=== PATIENT | female | born 1970 | race Caucasian/White ===

== ENCOUNTER 2016-12-28 17:56 | Emergency (ER) | payer BC ==
[2016-12-28] MEDS ORDERED: Ibuprofen 800 MG Tab PO ONE (18:19)
--- NOTE | 2016-12-28 18:24 | EDM.PDOC ---
ED HPI HEAD INJURY - General Source of Information: Reports: Patient History Limitations: Reports: No limitations - History of Present Illness Symptom Onset Date: 12/28/16 Location: Reports: frontal Quality: Reports: ache Severity: moderate Place of Occurrence: home Improves with: none Worsens with: none <Na Bynum - Last Filed: 12/28/16 19:05> <JoshShravan - Last Filed: 12/28/16 19:44> - General Chief Complaint: Head Injury Stated Complaint: HEAD INJURY Time Seen by Provider: 12/28/16 18:19 - History of Present Illness INITIAL COMMENTS - FREE TEXT/NARRATIVE: Pt states that she hit her head on a closet. denies LOC however c/o headache. hematoma noted to forehead. (Na Bynum) - Related Data Allergies/ADRs: Allergies Allergy/AdvReac Type Severity Reaction Status Date / Time metronidazole Allergy Abdominal Verified 12/28/16 18:04 Pain Home Meds: Home Meds Amitriptyline [Elavil] 50 mg PO BEDTIME 12/09/15 [History] Citalopram Hydrobromide [Celexa] 40 mg PO DAILY 12/09/15 [History] Ibuprofen [Advil] 400 mg PO ASDIRECTED 12/09/15 [History] Multivitamin [Multivitamins] 1 each PO DAILY 12/09/15 [History] Omeprazole [Prilosec] 20 mg PO DAILY 12/09/15 [History] Past Medical History HEENT History: Reports: None Cardiovascular History: Reports: None Respiratory History: Reports: None Gastrointestinal History: Reports: None Genitourinary History: Reports: UTI, recurrent 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 Neurological History: Reports: None Psychiatric History: Reports: Depression Endocrine/Metabolic History: Reports: None Hematologic History: Reports: None Immunologic History: Reports: None Oncologic (Cancer) History: Reports: None Dermatologic History: Reports: None - Past Surgical History GI Surgical History: Reports: Hernia repair/other Female Surgical History: Reports: None Musculoskeletal Surgical History: Reports: Arthroscopic knee, Shoulder surgery Other Musculoskeletal Surgeries/Procedures:: right upper arm surgery <Na Bynum - Last Filed: 12/28/16 19:05> Social & Family History - Tobacco Use Smoking Status *Q: Unknown Ever Smoked Second Hand Smoke Exposure: No - Caffeine Use Caffeine Use: Reports: Soda - Recreational Drug Use Recreational Drug Use: No <FletcherNa Yaakovtammiegregor - Last Filed: 12/28/16 19:05> ED ROS GENERAL - Review of Systems Review Of Systems: See Below Neurological: Reports: Headache <FletcherColadilene Yaakovtammiegregor - Last Filed: 12/28/16 19:05> ED EXAM, HEAD INJURY - Physical Exam Exam: See Below Exam Limited By: No limitations General Appearance: alert, WD/WN, no apparent distress Head: normocephalic, scalp hematoma Eyes: bilateral eye: EOMI, normal inspection, PERRL Neck: full range of motion, normal alignment, normal inspection, tender midline Respiratory: no respiratory distress, lungs clear, normal breath sounds, no accessory muscle use, chest non-tender 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, no motor/sensory deficits, alert, normal mood/affect, oriented x 3 <Na Bynum - Last Filed: 12/28/16 19:05> Course <Na Bynum - Last Filed: 12/28/16 19:05> <Shravan Moreno - Last Filed: 12/28/16 19:44> - Vital Signs Last Recorded V/S: Last Vital Signs Temp 36.6 C 12/28/16 18:07 Pulse 81 12/28/16 18:07 Resp 20 12/28/16 18:07 BP 157/93 H 12/28/16 18:07 Pulse Ox 97 12/28/16 18:07 (Na Bynum) (Shravan Moreno) - Orders/Labs/Meds Orders: Active Orders 24 hr Category Date Time Status Cervical Spine wo Cont [CT] Urgent Exams 12/28/16 18:18 Taken Head wo Cont [CT] Urgent Exams 12/28/16 18:18 Taken (Na Bynum) (Shravan Moreno) Meds: Medications Discontinued Medications Generic Name Dose Route Start Last Admin Trade Name Freq PRN Reason Stop Dose Admin Ibuprofen 800 mg 12/28/16 18:19 12/28/16 18:35 Motrin PO 12/28/16 18:20 800 mg ONETIME ONE Administration (Shravan Moreno) - Re-Assessments/Exams Free Text/Narrative Re-Assessment/Exam: 12/28/16 19:40 results discussed with Pt & family. (Shravan Moreno) Departure <Na Bynum - Last Filed: 12/28/16 19:05> - Departure Time of Disposition: 19:42 Condition: good <Shravan Moreno - Last Filed: 12/28/16 19:44> - Departure Disposition: Home, Self-Care 01 Clinical Impression: Concussion with less than 1 hour loss of consciousness, Strain of neck muscle Instructions: Concussion, Adult, [id number] Forms: ED Department Discharge Additional Instructions: 1) rest as much as possible next 48 hours 2) must recheck if develop signs of head injury 3) try heat to sore areas 4) follow up at clinic or recheck if there is any change or concerns
[2016-12-28] MEDS ORDERED: LORazepam 0.5 MG Tab PO ONE (19:40)
[2016-12-28] MEDS ORDERED: Ketorolac 30 MG/ML SDV IM ONE (19:40)
[2016-12-28 20:13] VITALS: BP 151/102
== END 2016-12-28 20:01 | disposition home or self-care (01) ==
LOC: DL.ED 17:56
DX: S06.0X9A Concussion with loss of consciousness of unspecified duration, initial encounter (principal); S16.1XXA Strain of muscle, fascia and tendon at neck level, initial encounter; F32.9 Major depressive disorder, single episode, unspecified; Z87.440 Personal history of urinary (tract) infections; Z79.899 Other long term (current) drug therapy; Z88.8 Allergy status to other drugs, medicaments and biological substances; W22.8XXA Striking against or struck by other objects, initial encounter; Y92.009 Unspecified place in unspecified non-institutional (private) residence as the place of occurrence of the external cause
CPT/HCPCS: 70450; 72125; 96372; 99283; A9270; J1885

== ENCOUNTER 2018-03-25 20:02 | Emergency (ER) | payer BC ==
--- NOTE | 2018-03-25 20:29 | EDM.PDOC ---
ED HPI GENERAL MEDICAL PROBLEM - General Chief Complaint: Headache Stated Complaint: [id number] HEADACHE Time Seen by Provider: 03/25/18 20:26 Source of Information: Reports: Patient History Limitations: Reports: No Limitations - History of Present Illness INITIAL COMMENTS - FREE TEXT/NARRATIVE: gives h/o migraines, onset yesterday been vomiting tried doxy with '0' Frontal Head Pain Score (Numeric/FACES): 10 - Related Data Allergies Allergy/AdvReac Type Severity Reaction Status Date / Time metronidazole Allergy Abdominal Verified 12/28/16 18:04 Pain Home Meds: Home Meds Amitriptyline [Elavil] 50 mg PO BEDTIME 12/09/15 [History] Citalopram Hydrobromide [Celexa] 40 mg PO DAILY 12/09/15 [History] Omeprazole [Prilosec] 20 mg PO DAILY 12/09/15 [History] Past Medical History HEENT History: Reports: None Cardiovascular History: Reports: None Respiratory History: Reports: None Gastrointestinal History: Reports: None Genitourinary History: Reports: UTI, Recurrent 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 - Physical Exam Exam: See Below Exam Limited By: No Limitations General Appearance: Alert, WD/WN, Mild Distress, Other (vomiting crying) Eye Exam: Bilateral Eye: PERRL (pupils ER @ 4mm) Ears: Hearing Grossly Normal Throat/Mouth: Normal Voice, No Airway Compromise Head Exam: Atraumatic Neck: Supple, Non-Tender Respiratory/Chest: No Respiratory Distress Cardiovascular: Regular Rate, Rhythm GI/Abdominal: Soft, Non-Tender Neuro Exam (Abbreviated): Alert, Oriented, Normal Cognition, Normal Gait, No Motor/Sensory Deficits Psychiatric: Tearful Skin Exam: Warm, Dry, Normal Color Course - Vital Signs Last Recorded V/S: Last Vital Signs Temp 37.1 C 03/25/18 20:17 Pulse 69 03/25/18 20:17 Resp 22 H 03/25/18 20:17 BP 183/94 H 03/25/18 20:17 Pulse Ox 96 03/25/18 20:17 - Orders/Labs/Meds Meds: Medications Discontinued Medications Generic Name Dose Route Start Last Admin Trade Name Sincere PRN Reason Stop Dose Admin Ketorolac Tromethamine 15 mg 03/25/18 20:26 03/25/18 20:33 Toradol IVPUSH 03/25/18 20:27 15 mg ONETIME ONE Administration Morphine Sulfate 2 mg 03/25/18 21:02 03/25/18 21:07 Morphine IVPUSH 03/25/18 21:03 2 mg ONETIME ONE Administration Ondansetron HCl 4 mg 03/25/18 20:26 03/25/18 20:32 Zofran IV 03/25/18 20:27 4 mg ONETIME ONE Administration - Re-Assessments/Exams Free Text/Narrative Re-Assessment/Exam: 03/25/18 21:23 re-exam; s/p morph = much better Departure - Departure Time of Disposition: 21:24 Disposition: Home, Self-Care 01 Condition: Good Clinical Impression: Migraine - Discharge Information Instructions: Migraine Headache, [id number] Referrals: Sheron Morrissey [Primary Care Provider] - Forms: ED Department Discharge Additional Instructions: 1) rest 2) recheck as needed
[2018-03-25 20:30] VITALS: BP 183/94
[2018-03-25] MEDS: Ondansetron 4 MG/2 ML SDV IV ONE (20:32)
[2018-03-25] MEDS: Ketorolac 30 MG/ML SDV IVPUSH ONE (20:33)
[2018-03-25] MEDS: Morphine 2 MG/ML Syringe IVPUSH ONE (21:07)
== END 2018-03-25 21:32 | disposition home or self-care (01) ==
LOC: DL.ED 20:02
DX: G43.909 Migraine, unspecified, not intractable, without status migrainosus (principal); Z79.899 Other long term (current) drug therapy; Z88.8 Allergy status to other drugs, medicaments and biological substances
CPT/HCPCS: 96374; 96375; 99283; J1885; J2270; J2405

== ENCOUNTER 2018-03-26 03:13 | Emergency (ER) | payer BC ==
[2018-03-26] MEDS ORDERED: Butorphanol 2 MG/ML SDV IVPUSH ONE (03:24)
[2018-03-26] MEDS ORDERED: Ondansetron 4 MG/2 ML SDV IV ONE (03:24)
[2018-03-26] MEDS ORDERED: Metoclopramide 10 MG/2 ML SDV IVPUSH ONE (03:29)
[2018-03-26 03:30] VITALS: BP 136/94
[2018-03-26] MEDS ORDERED: Sodium Chloride 0.9% 1,000 ML IV ONE (03:30)
--- NOTE | 2018-03-26 03:31 | EDM.PDOC ---
ED HPI GENERAL MEDICAL PROBLEM - General Chief Complaint: Headache Stated Complaint: HEADACHE [id number] Time Seen by Provider: 03/26/18 03:26 Source of Information: Reports: Patient History Limitations: Reports: No Limitations - History of Present Illness INITIAL COMMENTS - FREE TEXT/NARRATIVE: was here earlier for same, states CRANE never fully gone but gradually it worsened with nausea & retching. 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 Neurological History: Reports: None Psychiatric History: Reports: Depression Endocrine/Metabolic History: Reports: None Hematologic History: Reports: None Immunologic History: Reports: None Oncologic (Cancer) History: Reports: None Dermatologic History: Reports: None - Past Surgical History GI Surgical History: Reports: Hernia Repair/Other Musculoskeletal Surgical History: Reports: Arthroscopic Knee, Shoulder Surgery Social & Family History - Family History Family Medical History: Noncontributory - Caffeine Use Caffeine Use: Reports: Soda ED ROS GENERAL - Review of Systems Review Of Systems: ROS reveals no pertinent complaints other than HPI. - Physical Exam Exam: See Below Exam Limited By: No Limitations General Appearance: Alert, WD/WN, Mild Distress, Other (crying retching) Eye Exam: Bilateral Eye: PERRL (pupils ER @ 4mm) Ears: Hearing Grossly Normal Throat/Mouth: Normal Voice, No Airway Compromise Head Exam: Atraumatic Neck: Non-Tender, Full Range of Motion Respiratory/Chest: No Respiratory Distress Cardiovascular: Regular Rate, Rhythm GI/Abdominal: Soft, Non-Tender Neuro Exam (Abbreviated): Alert, Oriented, Normal Cognition, Normal Gait, No Motor/Sensory Deficits Psychiatric: Tearful Skin Exam: Warm, Dry, Normal Color Course - Vital Signs Last Recorded V/S: Last Vital Signs Temp 36.6 C 03/26/18 03:22 Pulse 79 03/26/18 03:22 Resp 22 H 03/26/18 03:22 BP 136/94 H 03/26/18 03:22 Pulse Ox 95 03/26/18 03:22 - Orders/Labs/Meds Orders: Active Orders 24 hr Category Date Time Status Head wo Cont [CT] Urgent Exams 03/26/18 03:31 Taken Labs: Laboratory Tests 03/26/18 03/26/18 Range/Units 03:41 03:41 WBC 9.4 (5.0-10.0) 10^3/uL RBC 4.47 (4.2-5.4) 10^6/uL Hgb 12.6 (12.0-16.0) g/dL Hct 37.6 (37.0-47.0) % MCV 84.1 (80-100) fL MCH 28.2 (27.0-34.0) pg MCHC 33.5 (33.0-35.0) g/dL Plt Count 262 (150-450) 10^3/uL Neut % (Auto) 69.0 (42.2-75.2) % Lymph % (Auto) 22.6 (20.5-50.1) % [place] % (Auto) 6.8 (2-8) % Eos % (Auto) 1.2 (1.0-3.0) % Baso % (Auto) 0.4 (0.0-1.0) % Sodium 138 (135-145) mmol/L Potassium 4.2 (3.6-5.0) mmol/L Chloride 103 (101-111) mmol/L Carbon Dioxide 24.0 (21.0-31.0) mmol/L Anion Gap 15.2 BUN 20 H (7-18) mg/dL Creatinine 1.0 (0.6-1.3) mg/dL Est Cr Clr Drug Dosing 59.41 mL/min Estimated GFR (MDRD) 59 BUN/Creatinine Ratio 20.00 Glucose 121 H (74-105) mg/dL Calcium 9.6 (8.4-10.2) mg/dl Total Bilirubin 0.7 (0.2-1.0) mg/dL AST 28 (10-42) IU/L ALT 35 (10-60) IU/L Alkaline Phosphatase 91 (42-121) IU/L Total Protein 8.4 H (6.7-8.2) g/dl Albumin 4.7 (3.2-5.5) g/dl Globulin 3.7 Albumin/Globulin Ratio 1.27 Meds: Medications Discontinued Medications Generic Name Dose Route Start Last Admin Trade Name Sincere PRN Reason Stop Dose Admin Butorphanol Tartrate 2 mg 03/26/18 03:24 03/26/18 03:38 Stadol IVPUSH 03/26/18 03:25 2 mg ONETIME ONE Administration Sodium Chloride 1,000 mls @ 999 mls/hr 03/26/18 03:30 03/26/18 03:30 Normal Saline IV 03/26/18 04:30 999 mls/hr .BOLUS ONE Administration Metoclopramide HCl 10 mg 03/26/18 03:29 03/26/18 03:36 Reglan IVPUSH 03/26/18 03:30 10 mg ONETIME ONE Administration Ondansetron HCl 4 mg 03/26/18 03:24 03/26/18 04:29 Zofran IV 03/26/18 03:25 Not Given ONETIME ONE - Re-Assessments/Exams Free Text/Narrative Re-Assessment/Exam: 03/26/18 04:59 results discussed with pt who is feeling better presently. Departure - Departure Time of Disposition: 05:00 Disposition: Home, Self-Care 01 Condition: Good Clinical Impression: Migraine Qualifiers: Migraine type: without aura Status migrainosus presence: with status migrainosus Intractability: intractable Qualified Code(s): G43.011 - Migraine without aura, intractable, with status migrainosus - Discharge Information Instructions: Recurrent Migraine Headache, [id number] Forms: ED Department Discharge Additional Instructions: 1) follow up with clinic - My Orders Last 24 Hours: My Active Orders 03/26/18 03:31 Head wo Cont [CT] Urgent - Assessment/Plan Last 24 Hours: My Active Orders 03/26/18 03:31 Head wo Cont [CT] Urgent
== END 2018-03-26 05:10 | disposition home or self-care (01) ==
LOC: DL.ED 03:13
DX: G43.011 Migraine without aura, intractable, with status migrainosus (principal); F32.9 Major depressive disorder, single episode, unspecified; Z88.8 Allergy status to other drugs, medicaments and biological substances; Z79.899 Other long term (current) drug therapy; Z87.440 Personal history of urinary (tract) infections
CPT/HCPCS: 36415; 70450; 80053; 85025; 96365; 96375; 99284; J0595; J2765; J7030

== ENCOUNTER 2018-03-26 10:49 | Emergency (ER) | payer BC ==
[2018-03-26] MEDS ORDERED: Sodium Chloride 0.9% 10 ML Syringe FLUSH PRN (11:19)
[2018-03-26] MEDS ORDERED: Butorphanol 2 MG/ML SDV IVPUSH ONE (11:20)
[2018-03-26] MEDS ORDERED: LORazepam 2 MG/ML Syringe IVPUSH ONE (11:21)
[2018-03-26] MEDS ORDERED: Metoclopramide 10 MG/2 ML SDV IVPUSH ONE (11:21)
--- NOTE | 2018-03-26 11:35 | EDM.PDOC ---
ED HPI GENERAL MEDICAL PROBLEM - General Chief Complaint: Neurological Problem Stated Complaint: FROM [facility] Time Seen by Provider: 03/26/18 11:20 Source of Information: Reports: Patient, Family, RN, RN Notes Reviewed History Limitations: Reports: No Limitations - History of Present Illness INITIAL COMMENTS - FREE TEXT/NARRATIVE: Pt to ER with c/o severe headache and back pain since Thursday. Patient was seen in the ER last night and had some temporary relief from pain meds. Patient was then seen in the clinic today by Dr. Muñoz. Dr. Muñoz contacted the ER and states the patient presented with the severe headache, back pain, and hyper reflexia. Patient has a history of gastric bypass approximately 3 weeks ago. Patient admits to N/V, denies diarrhea, fever, chills. Patient admits to left ear pain and sore throat. Onset: Gradual Onset Date: 03/24/18 Duration: Constant Location: Reports: Head, Back Quality: Reports: Ache, Throbbing Severity: Severe Improves with: Reports: None Worsens with: Reports: None Associated Symptoms: Reports: Headaches, Nausea/Vomiting Head Pain Score (Numeric/FACES): 10 - Related Data Allergies Allergy/AdvReac Type Severity Reaction Status Date / Time metronidazole Allergy Abdominal Verified 03/26/18 11:22 Pain Home Meds: Home Meds Amitriptyline [Elavil] 50 mg PO BEDTIME 12/09/15 [History] Citalopram Hydrobromide [Celexa] 40 mg PO DAILY 12/09/15 [History] Omeprazole [Prilosec] 20 mg PO DAILY 12/09/15 [History] Past Medical History HEENT History: Reports: None Cardiovascular History: Reports: None Respiratory History: Reports: None Gastrointestinal History: Reports: None Genitourinary History: Reports: UTI, Recurrent 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 Neurological History: Reports: None Psychiatric History: Reports: Depression Endocrine/Metabolic History: Reports: None Hematologic History: Reports: None Immunologic History: Reports: None Oncologic (Cancer) History: Reports: None Dermatologic History: Reports: None - Past Surgical History GI Surgical History: Reports: Hernia Repair/Other Musculoskeletal Surgical History: Reports: Arthroscopic Knee, Shoulder Surgery Social & Family History - Family History Family Medical History: Noncontributory - Caffeine Use Caffeine Use: Reports: Soda ED ROS GENERAL - Review of Systems Review Of Systems: ROS reveals no pertinent complaints other than HPI. - Physical Exam Exam: See Below Exam Limited By: No Limitations General Appearance: Alert, WD/WN, Moderate Distress Eye Exam: Bilateral Eye: EOMI, Normal Inspection, PERRL (5 brisk) Ears: Normal External Exam, Hearing Grossly Normal, Normal TMs Nose: Normal Inspection Throat/Mouth: Normal Lips, Normal Teeth, Normal Gums, Normal Voice, No Airway Compromise, Other (pharnyx and tonsils erythematous, edematous, white exudate on the left) Head Exam: Atraumatic, Normocephalic Neck: Normal Inspection, Supple, Non-Tender, Full Range of Motion Respiratory/Chest: No Respiratory Distress, Lungs Clear, Normal Breath Sounds, No Accessory Muscle Use, Chest Non-Tender Cardiovascular: Normal Peripheral Pulses, Regular Rate, Rhythm, No Edema, No Gallop, No JVD, No Murmur, No Rub GI/Abdominal: Normal Bowel Sounds, Soft, Tender (recent gastric bypass) (Female) Exam: Deferred Rectal (Female) Exam: Deferred Neuro Exam (Abbreviated): Alert, Oriented, Abnormal Reflexes (hyperreflexia) Back Exam: Normal Inspection, Full Range of Motion Extremities: Normal Inspection, Normal Range of Motion, Non-Tender, No Pedal Edema, Normal Capillary Refill Psychiatric: Anxious, Tearful Skin Exam: Warm, Dry, Intact, Normal Color, No Rash Course - Vital Signs Last Recorded V/S: Last Vital Signs Temp 97.1 F 03/26/18 11:05 Pulse 78 03/26/18 13:08 Resp 24 H 03/26/18 11:05 BP 122/70 03/26/18 13:08 Pulse Ox 98 03/26/18 13:08 - Orders/Labs/Meds Orders: Active Orders 24 hr Category Date Time Status Peripheral IV Care [RC] . DIRECTED Care 03/26/18 11:20 Active CULTURE STREP A CONFIRMATION [] Stat Lab 03/26/18 11:38 Results STREP SCRN A RAPID W CULT CONF [RM] Stat Lab 03/26/18 11:38 Ordered Peripheral IV Insertion Adult [OM.PC] Stat Oth 03/26/18 11:19 Ordered Labs: Laboratory Tests 03/26/18 03/26/18 03/26/18 Range/Units 11:32 11:32 11:32 WBC 11.9 H (5.0-10.0) 10^3/uL RBC 4.55 (4.2-5.4) 10^6/uL Hgb 12.7 (12.0-16.0) g/dL Hct 38.2 (37.0-47.0) % MCV 84.0 (80-100) fL MCH 27.9 (27.0-34.0) pg MCHC 33.2 (33.0-35.0) g/dL Plt Count 278 (150-450) 10^3/uL Neut % (Auto) 75.0 (42.2-75.2) % Lymph % (Auto) 16.7 L (20.5-50.1) % [place] % (Auto) 7.2 (2-8) % Eos % (Auto) 0.8 L (1.0-3.0) % Baso % (Auto) 0.3 (0.0-1.0) % Sodium 140 (135-145) mmol/L Magnesium 1.9 (1.8-2.5) mg/dL Creatine Kinase (26-174) IU/L Creatine Kinase Index CK-MB (CK-2) (0.4-4.7) ng/mL TSH, Ultra Sensitive (0.45-5.33) uIu/mL 03/26/18 Range/Units 11:32 WBC (5.0-10.0) 10^3/uL RBC (4.2-5.4) 10^6/uL Hgb (12.0-16.0) g/dL Hct (37.0-47.0) % MCV (80-100) fL MCH (27.0-34.0) pg MCHC (33.0-35.0) g/dL Plt Count (150-450) 10^3/uL Neut % (Auto) (42.2-75.2) % Lymph % (Auto) (20.5-50.1) % [place] % (Auto) (2-8) % Eos % (Auto) (1.0-3.0) % Baso % (Auto) (0.0-1.0) % Sodium (135-145) mmol/L Magnesium (1.8-2.5) mg/dL Creatine Kinase (26-174) IU/L Creatine Kinase Index Not Reportable CK-MB (CK-2) 3.40 (0.4-4.7) ng/mL TSH, Ultra Sensitive 0.14 L (0.45-5.33) uIu/mL Meds: Medications Discontinued Medications Generic Name Dose Route Start Last Admin Trade Name Freq PRN Reason Stop Dose Admin Butorphanol Tartrate 2 mg 03/26/18 11:20 03/26/18 11:34 Stadol IVPUSH 03/26/18 11:21 2 mg ONETIME ONE Administration Lorazepam 1 mg 03/26/18 11:21 03/26/18 11:34 Ativan IVPUSH 03/26/18 11:22 1 mg ONETIME ONE Administration Metoclopramide HCl 10 mg 03/26/18 11:21 03/26/18 11:34 Reglan IVPUSH 03/26/18 11:22 10 mg ONETIME ONE Administration Morphine Sulfate 2 mg 03/26/18 13:40 03/26/18 13:47 Morphine IVPUSH 03/26/18 13:41 2 mg ONETIME ONE Administration Ondansetron HCl 4 mg 03/26/18 13:40 03/26/18 13:47 Zofran Odt PO 03/26/18 13:41 4 mg ONETIME ONE Administration Sodium Chloride 10 ml 03/26/18 11:19 03/26/18 11:35 Saline Flush FLUSH 10 ml ASDIRECTED PRN Administration Keep Vein Open Departure - Departure Time of Disposition: 14:23 Disposition: DC/Tfer to Acute Hospital 02 Condition: Fair Clinical Impression: Hyperreflexia of lower extremity Headache, migraine, intractable, with status migrainosus Qualifiers: Migraine type: unspecified Qualified Code(s): G43.911 - Migraine, unspecified, intractable, with status migrainosus Nausea and vomiting Qualifiers: Vomiting type: unspecified Vomiting Intractability: non-intractable Qualified Code(s): R11.2 - Nausea with vomiting, unspecified - Discharge Information Referrals: Sheron Morrissey [Primary Care Provider] - Forms: ED Department Discharge, Interfacility Transfer EMTALA - My Orders Last 24 Hours: My Active Orders 03/26/18 11:19 Peripheral IV Insertion Adult [OM.PC] Stat 03/26/18 11:20 Peripheral IV Care [RC] . DIRECTED 03/26/18 11:38 CULTURE STREP A CONFIRMATION [RM] Stat STREP SCRN A RAPID W CULT CONF [RM] Stat - Assessment/Plan Last 24 Hours: My Active Orders 03/26/18 11:19 Peripheral IV Insertion Adult [OM.PC] Stat 03/26/18 11:20 Peripheral IV Care [RC] . DIRECTED 03/26/18 11:38 CULTURE STREP A CONFIRMATION [RM] Stat STREP SCRN A RAPID W CULT CONF [RM] Stat
[2018-03-26 12:26] LABS: SODIUM,NA 140 mmol/L (135-145)
[2018-03-26 13:09] VITALS: BP 122/70
[2018-03-26] MEDS ORDERED: Ondansetron 4 MG Tab.DIS PO ONE (13:40)
[2018-03-26] MEDS ORDERED: Morphine 2 MG/ML Syringe IVPUSH ONE (13:40)
== END 2018-03-26 14:30 ==
LOC: DL.ED 10:49
DX: G43.911 Migraine, unspecified, intractable, with status migrainosus (principal); R11.2 Nausea with vomiting, unspecified; R29.2 Abnormal reflex; Z88.8 Allergy status to other drugs, medicaments and biological substances; Z79.899 Other long term (current) drug therapy
CPT/HCPCS: 36415; 80048; 82550; 82553; 83735; 84443; 85025; 87081; 87430; 96374; 96375; 99285; A9270; J0595; J2060; J2270; J2765; J7050

== ENCOUNTER → 2020-03-20 | Day surgery (SDC) | payer BC ==
[~2020-03-20] MED LIST: Dextrose 5%-0.45% NaCl 1,000 ML IV SCH; Midazolam 1 MG/ML 2 ML SDV IV ONE; Midazolam 1 MG/ML 2 ML SDV ONE; Sodium Chloride 0.9% 10 ML Syringe FLUSH PRN; fentaNYL 100 MCG/2 ML SDV IV ONE; fentaNYL 100 MCG/2 ML SDV ONE
--- NOTE | 2020-03-20 08:26 | OR ---
DATE: 03/20/2020 PROCEDURE: Incomplete colonoscopy. INSTRUMENT USED: PCF-H190DL Olympus video colonoscope. PREMEDICATIONS: Fentanyl 100 mcg intravenous, Versed 2.5 mg intravenous. Nasal O2 cannula. The procedure was done under pulse oximetry, BP recording, and cardiac cath technologist. INDICATION: Screening colonoscopic examination is done for detection of any polypoid lesions and removal, endoscopic hemostasis therapy if needed. DESCRIPTION OF PROCEDURE: Initial rectal exam was unremarkable. Rigid anoscopy was normal. The colonoscope was passed with ease up to around the area of the proximal descending colon. There was large amount of fecal material that could not be aspirated clear and the examination was terminated. No bleeding was noted from any of the visualized areas at the commencement of the examination. No stricture. No vascular ectasia. No large isolated ulcerations seen. No evidence of diffuse inflammatory bowel disease in the form of friability, contact bleeding, or ulcerations. No polyp or tumor mass identified. No bleeding was noted from any of the visualized areas at the completion of the examination. IMPRESSION: Normal study. The patient tolerated the procedure well. [facility] /[id number] MTDD
[2020-03-20 11:24] VITALS: BP 114/68; PULSE 75
== END ==
LOC: DL.ENDO 06:04
PROVIDERS: ATTEND Internal Medicine Gastroenterology
DX: Z12.11 Encounter for screening for malignant neoplasm of colon (principal); E66.09 Other obesity due to excess calories; F41.1 Generalized anxiety disorder; F32.9 Major depressive disorder, single episode, unspecified; K21.9 Gastro-esophageal reflux disease without esophagitis; G47.33 Obstructive sleep apnea (adult) (pediatric); K80.20 Calculus of gallbladder without cholecystitis without obstruction; Z90.710 Acquired absence of both cervix and uterus; Z98.84 Bariatric surgery status; Z68.34 Body mass index [BMI] 34.0-34.9, adult
CPT/HCPCS: 45378; J7042; G0121; J2250; J3010

== ENCOUNTER 2020-03-29 05:57 | Day surgery (SDC) | payer BC ==
[2020-03-29] MEDS ORDERED: fentaNYL 100 MCG/2 ML SDV IV ONE ×4 (05:58→07:23)
[2020-03-29] MEDS ORDERED: Midazolam 1 MG/ML 2 ML SDV IV ONE ×7 (05:58→07:21)
[2020-03-29] MEDS ORDERED: Dextrose 5%-0.45% NaCl 1,000 ML IV SCH (06:00)
[2020-03-29] MEDS ORDERED: Sodium Chloride 0.9% 10 ML Syringe FLUSH PRN (06:00)
[2020-03-29] MEDS ORDERED: fentaNYL 100 MCG/2 ML SDV ONE (06:10)
[2020-03-29] MEDS ORDERED: Midazolam 1 MG/ML 2 ML SDV ONE (06:10)
--- NOTE | 2020-03-29 08:34 | OR ---
DATE: 03/29/2020 PROCEDURE: Total colonoscopy. INSTRUMENT USED: PCF-H190DL Olympus video colonoscope. PREMEDICATIONS: Fentanyl 125 mcg intravenous, Versed 4 mg intravenous, nasal O2 cannula. The procedure was done under pulse oximetry, BP recording, and pit shoveler. INDICATION: Screening colonoscopic examination is done for detection of any polypoid lesions and removal, endoscopic hemostasis therapy if needed. Had previous inadequate study due to the presence of large amount of solid fecal material. DESCRIPTION OF PROCEDURE: Initial rectal exam was unremarkable. Rigid anoscopy was normal. The colonoscope was passed with relative ease up to the ileocecal area. Photographs were taken of the normal-appearing cecum, identified by landmarks of appendiceal orifice and double-bulged ileocecal folds. No bleeding was noted from any of the visualized areas at the commencement of the examination. The bowel preparation was found to be adequate, [place] scale 2 in all the regions, total score 6. No stricture. No vascular ectasia. No large isolated ulcerations seen. No evidence of diffuse inflammatory bowel disease in the form of friability, contact bleeding, or ulcerations. No polyp or tumor mass identified. Probing the proximal sides of folds and flexures using adequate distention, and clearing up the stool material, withdrawal of the scope was made. Cecum to rectum time over 6 minutes. No bleeding was noted from any of the visualized areas at the completion of examination. IMPRESSION: Normal study. The patient tolerated the procedure well. [facility] /[id number]
[2020-03-29 11:12] VITALS: BP 129/83; PULSE 69
== END 2020-03-29 09:46 | disposition home or self-care (01) ==
LOC: DL.ENDO 05:57
PROVIDERS: ATTEND Internal Medicine Gastroenterology
DX: Z12.11 Encounter for screening for malignant neoplasm of colon (principal); E66.09 Other obesity due to excess calories; F32.9 Major depressive disorder, single episode, unspecified; K21.9 Gastro-esophageal reflux disease without esophagitis; G47.33 Obstructive sleep apnea (adult) (pediatric); K80.20 Calculus of gallbladder without cholecystitis without obstruction; R73.9 Hyperglycemia, unspecified; M19.90 Unspecified osteoarthritis, unspecified site; Z88.1 Allergy status to other antibiotic agents; Z90.710 Acquired absence of both cervix and uterus; Z98.84 Bariatric surgery status; Z98.890 Other specified postprocedural states; Z68.36 Body mass index [BMI] 36.0-36.9, adult
CPT/HCPCS: G0121; J2250; J3010; J7042